=== PATIENT | male | born 2005 | race Caucasian/White ===

== ENCOUNTER 2024-04-21 19:12 | Emergency (ER) | payer SELFPAY ==
[~2024-04-21] VITALS: Ht 188 cm; Wt 100.0 kg
[2024-04-21 19:18] VITALS: BP 130/79; TEMP 99.3
[2024-04-21] MEDS ORDERED: dexAMETHasone 10 MG/ML VIAL PO ONE (19:45)
[2024-04-21] MEDS ORDERED: Amoxicillin 500 MG CAP PO ONE (19:45)
[2024-04-21] MEDS ORDERED: AMOXICILLIN875 MG PO (19:46)
[2024-04-21 19:59] VITALS: PULSE 87
== END 2024-04-21 20:35 | disposition home or self-care (01) ==
LOC: COL.ER 19:12
DX: H66.92 Otitis media, unspecified, left ear (principal); J06.9 Acute upper respiratory infection, unspecified
CPT/HCPCS: J1100